=== PATIENT | female | born 1985 | race Caucasian/White ===

== ENCOUNTER 2018-08-16 04:25 | Emergency (ER) | payer OTHER ==
[~2018-08-16] VITALS: Wt 65.5 kg
[2018-08-16] MEDS ORDERED: DIPHENHYDRAMINE 50 MG INJ IM ONE (06:30)
[2018-08-16] MEDS ORDERED: LORAZEPAM 2 MG INJ IM ONE (06:30)
[2018-08-16] MEDS ORDERED: HALOPERIDOL 5 MG INJ IM ONE (06:30)
--- NOTE | 2018-08-16 07:28 | PSY ---
Date/Time of Note Date/Time of Note DATE: 08/16/18 TIME: 07:26 Psychiatric Subjective Eval Consent Pt consented to telemedicine: Yes Subjective Evaluation Patient location: emergency Chief Complaint: C/O COHEN, NECK PAIN, "CHEMICAL" EXPOSURE THAT "BURNED" HER. History of present illness 32 yo homeless female BIB EMS due to agitation and paranoia. UDS + amph. Pt was combative, yelling, saying people are after her. Pt was chemically restrained. Emmanuel QUEZADA attempted to evalaute the pt, but she is too drowsy, wakes up for a few seconds but her speech is incoherent. Past psychiatric history unknown Medical history Problems Medical Problems: (1) Abscess Status: Acute (2) Alcohol abuse Status: Acute (3) Alcoholic intoxication Status: Acute (4) Psychosis Status: Acute Allergies: Coded Allergies: No Known Drug Allergies (Verified Allergy, Unknown, 01/03/15) Substance Abuse Substance abuse history: Yes Psychiatric Objective Eval Review of Systems: Review of Systems: Not Applicable Mental Status Examination: Appearance: Disheveled Eye Contact: None Psychomotor Activity: Slow Behavior: Agitated Speech: Slurred AFFECT: Anxious Mood: Angry Though Process: Tangential Thought Content: Delusions Insight: Impared Judgement: Impared Laboratory Results Laboratory Tests Test 08/16/18 05:21 08/16/18 05:30 08/16/18 05:33 Urine Color YELLOW Urine Clarity SLIGHTLY CLOUDY Urine pH 6.0 Urine Specific [place] 1.016 Urine Ketones TRACE mg/dL Urine Nitrite NEGATIVE mg/dL Urine Bilirubin NEGATIVE mg/dL Urine Urobilinogen NEGATIVE mg/dL Urine Leukocyte Esterase NEGATIVE Tyrese/ul Urine Microscopic RBC 1 /HPF Urine Microscopic WBC 6 /HPF Urine Squamous Epithelial Cells FEW /HPF Urine Bacteria FEW /HPF Urine Mucus FEW /HPF Urine Hemoglobin NEGATIVE mg/dL Urine Glucose NEGATIVE mg/dL Urine Total Protein NEGATIVE mg/dl Urine Opiates Screen Negative Urine Barbiturates Negative Urine Amphetamines Screen POSITIVE Urine Benzodiazepines Screen Negative Urine Cocaine Screen Negative Urine Cannabinoids Positive White Blood Count 7.9 10^3/ul Red Blood Count 5.25 10^6/ul Hemoglobin 14.8 g/dl Hematocrit 44.8 % Mean Corpuscular Volume 85.3 fl Mean Corpuscular Hemoglobin 28.2 pg Mean Corpuscular 33.0 g/dl Hemoglobin Concent Red Cell Distribution Width 12.6 % Platelet Count 357 10^3/UL Mean Platelet Volume 10.1 fl Immature Granulocytes % 0.100 % Neutrophils % 54.6 % Lymphocytes % 35.8 % Monocytes % 7.7 % Eosinophils % 1.0 % Basophils % 0.8 % Nucleated Red Blood Cells % 0.0 /100WBC Immature Granulocytes # 0.010 10^3/ul Neutrophils # 4.3 10^3/ul Lymphocytes # 2.8 10^3/ul Monocytes # 0.6 10^3/ul Eosinophils # 0.1 10^3/ul Basophils # 0.1 10^3/ul Nucleated Red Blood Cells # 0.0 10^3/ul Sodium Level 143 mmol/L Potassium Level 3.8 mmol/L Chloride Level 107 mmol/L Carbon Dioxide Level 25 mmol/L Anion Gap 11 Blood Urea Nitrogen 13 mg/dl Creatinine 0.61 mg/dl Est Glomerular Filtrat > 60 mL/min Rate mL/min Glucose Level 98 mg/dl Calcium Level 9.7 mg/dl Total Bilirubin 0.9 mg/dl Direct Bilirubin 0.00 mg/dl Indirect Bilirubin 0.9 mg/dl Aspartate Amino Transf (AST/SGOT) 36 IU/L Alanine 24 IU/L Aminotransferase (ALT/SGPT) Alkaline Phosphatase 85 IU/L Total Protein 8.4 g/dl Albumin 4.9 g/dl Globulin 3.50 g/dl Albumin/Globulin Ratio 1.40 Salicylates Level < 1.0 mg/dl Acetaminophen Level < 10.0 ug/ml Ethyl Alcohol Level < 10.0 mg/dl POC Beta HCG, Qualitative NEGATIVE Assessment and Plan Assessment/Diagnosis Diagnosis UNSPECIFIED PSYCHOSIS. AMPHETAMINE USE DISORDER. Recommendation/Plan Medication Management ZYPREXA 5 MG PO BID Multiple antipsychotics: Yes Discharge Disposition: Psychiatric inpatient Legal Status: Place involuntary hold SUJIT KEARNS MD August 16, 2018 07:28
--- NOTE | 2018-08-16 11:08 | ERD ---
ER Documentation Chief Complaint Chief Complaint C/O COHEN, NECK PAIN, "CHEMICAL" EXPOSURE THAT "BURNED" HER. HPI This is a 32-year-old woman with a history of psychiatric illness and drug abuse brought in by EMS for agitation, crying, yelling, combative behavior. She denies recent trauma, no chest pain or shortness of breath, no vomiting or diarrhea, no headache or blurry vision. ROS All systems reviewed and are negative except as per history of present illness. Medications Home Meds Unable to Obtain Active Prescriptions or Reported Meds Allergies Allergies: Coded Allergies: No Known Drug Allergies (Verified Allergy, Unknown, 01/03/15) PMhx/Soc Drug abuse, psychiatric illness Hx Alcohol Use: Yes (pt refused to provide answers at this time.) Hx Substance Use: No Hx Tobacco Use: Yes Smoking Status: Current every day smoker Physical Exam Vitals Vital Signs Date Temp Pulse Resp B/P (MAP) Pulse Ox O2 O2 Flow FiO2 Time Delivery Rate 08/16/18 90 18 138/72 100 Room Air 11:13 (94) 08/16/18 112 20 128/85 100 07:15 (99) 08/16/18 108 21 131/83 100 07:04 (99) 08/16/18 113 20 135/78 100 06:49 (97) 08/16/18 98 22 138/85 100 06:34 (102) 08/16/18 98.1 101 22 146/85 100 06:19 (105) 08/16/18 98.5 96 18 131/81 97 04:42 (98) Physical Exam Const: Agitated, combative, afebrile Resp: Clear to auscultation bilaterally Cardio: Tachycardic and regular, no murmurs Abd: Soft, non tender, non distended. Normal bowel sounds Skin: No petechiae or rashes Back: No midline or flank tenderness Ext: No cyanosis, or edema Neur: Awake and alert x3, moving all extremities, no focal deficits, no facial asymmetry, pupils dilated and reactive Psych: Agitated, combative Result Diagram: 08/16/1830 08/16/1830 Results 24 hrs Laboratory Tests Test 08/16/18 05:21 08/16/18 05:30 08/16/18 05:33 Urine Color YELLOW Urine Clarity SLIGHTLY CLOUDY Urine pH 6.0 Urine Specific [place] 1.016 Urine Ketones TRACE mg/dL Urine Nitrite NEGATIVE mg/dL Urine Bilirubin NEGATIVE mg/dL Urine Urobilinogen NEGATIVE mg/dL Urine Leukocyte Esterase NEGATIVE Tyrese/ul Urine Microscopic RBC 1 /HPF Urine Microscopic WBC 6 /HPF Urine Squamous Epithelial Cells FEW /HPF Urine Bacteria FEW /HPF Urine Mucus FEW /HPF Urine Hemoglobin NEGATIVE mg/dL Urine Glucose NEGATIVE mg/dL Urine Total Protein NEGATIVE mg/dl Urine Opiates Screen Negative Urine Barbiturates Negative Urine Amphetamines Screen POSITIVE Urine Benzodiazepines Screen Negative Urine Cocaine Screen Negative Urine Cannabinoids Positive White Blood Count 7.9 10^3/ul Red Blood Count 5.25 10^6/ul Hemoglobin 14.8 g/dl Hematocrit 44.8 % Mean Corpuscular Volume 85.3 fl Mean Corpuscular Hemoglobin 28.2 pg Mean Corpuscular 33.0 g/dl Hemoglobin Concent Red Cell Distribution Width 12.6 % Platelet Count 357 10^3/UL Mean Platelet Volume 10.1 fl Immature Granulocytes % 0.100 % Neutrophils % 54.6 % Lymphocytes % 35.8 % Monocytes % 7.7 % Eosinophils % 1.0 % Basophils % 0.8 % Nucleated Red Blood Cells % 0.0 /100WBC Immature Granulocytes # 0.010 10^3/ul Neutrophils # 4.3 10^3/ul Lymphocytes # 2.8 10^3/ul Monocytes # 0.6 10^3/ul Eosinophils # 0.1 10^3/ul Basophils # 0.1 10^3/ul Nucleated Red Blood Cells # 0.0 10^3/ul Sodium Level 143 mmol/L Potassium Level 3.8 mmol/L Chloride Level 107 mmol/L Carbon Dioxide Level 25 mmol/L Anion Gap 11 Blood Urea Nitrogen 13 mg/dl Creatinine 0.61 mg/dl Est Glomerular Filtrat > 60 mL/min Rate mL/min Glucose Level 98 mg/dl Calcium Level 9.7 mg/dl Total Bilirubin 0.9 mg/dl Direct Bilirubin 0.00 mg/dl Indirect Bilirubin 0.9 mg/dl Aspartate Amino Transf (AST/SGOT) 36 IU/L Alanine 24 IU/L Aminotransferase (ALT/SGPT) Alkaline Phosphatase 85 IU/L Total Protein 8.4 g/dl Albumin 4.9 g/dl Globulin 3.50 g/dl Albumin/Globulin Ratio 1.40 Salicylates Level < 1.0 mg/dl Acetaminophen Level < 10.0 ug/ml Ethyl Alcohol Level < 10.0 mg/dl POC Beta HCG, Qualitative NEGATIVE Current Medications Medications Dose Sig/Sherrill Start Time Status Last (Trade) Ordered Route PRN Stop Time Admin Dose Reason Admin 25 mg ONCE ONCE 08/16/18 DC 08/16/18 Diphenhydrami IM 06:30 08/16/18 06:30 ne HCl 06:31 (Benadryl) Haloperidol 5 mg ONCE ONCE 08/16/18 DC 08/16/18 (Haldol) IM 06:30 08/16/18 06:30 06:31 Lorazepam 2 mg ONCE ONCE 08/16/18 DC 08/16/18 (Ativan) IM 06:30 08/16/18 06:29 06:31 Procedures/MDM Patient placed in four-point restraints given her extreme agitation and combative behavior, she was swinging and kicking as security guards and nursing staff. Security one-to-one watch was established, I administered Benadryl 25 mg IM, Ativan 25 mg IM, Haldol 5 mg IM CBC and electrolytes were normal, liver function tests normal, urinalysis negative for infection, ethanol level negative, drug screen positive for methamphetamines. Tele-psychiatry evaluated the patient and recommended a psychiatric hold. Patient's behavioral symptoms have stabilized while in the department. Patient is medically cleared and appropriate for psychiatric evaluation and work up. No e/o neurologic, toxic, infectious, or metabolic cause. Observation Note: Time: 5 hours Family Hx: No Hypertension Evaluation: Multiple exams showed improving symptoms and no evidence of worsening mental status or cardiopulmonary decompensation. Departure Diagnosis: Primary Impression: Amphetamine abuse Additional Impression: Psychiatric illness Condition: Stable MARGARITO BRADSHAW MD August 16, 2018 11:08
[2018-08-17 10:29] VITALS: BP 112/66; PULSE 97; RESP 18
== END 2018-08-17 11:17 | disposition home or self-care (01) ==
LOC: E/R 04:25
DX: F15.159 Other stimulant abuse with stimulant-induced psychotic disorder, unspecified (principal); F17.210 Nicotine dependence, cigarettes, uncomplicated; R40.2142 Coma scale, eyes open, spontaneous, at arrival to emergency department; R40.2362 Coma scale, best motor response, obeys commands, at arrival to emergency department; R40.2252 Coma scale, best verbal response, oriented, at arrival to emergency department
CPT/HCPCS: 80053; 80307; 81001; 81003; 81025; 85025; 96372; J1200; J1630; J2060; Z7502